=== PATIENT | female | born 1995 | race Two or more races ===

== ENCOUNTER 2016-07-24 14:02 | Emergency (ER) | payer OTHER ==
[2016-07-24] MEDS ORDERED: IOPAMIDOL 300 (61%) 150 ML VIAL IV ONE (14:03)
[2016-07-24] MEDS ORDERED: ONDANSETRON 4 MG/2ML 2 ML VIAL ONE (15:04)
[2016-07-24] MEDS ORDERED: HYDROMORPHONE HCL 1 MG/ML SYRINGE ONE (15:04)
[2016-07-24 15:20] LABS: ABSOLUTE NEUTROPHIL COUNT 10.8 K/mm3 (1.8-7.7); BASO % 0.2 % (0.2-1.0); EOS # 0.1 (0.0-0.5); EOS % 0.5 % (0.9-2.9); HEMATOCRIT 40.8 % (37.0-47.0); HEMOGLOBIN 13.7 gm/l (12.0-16.0); IMM NEUT% 0.3 % (0-1); LYMPH # 0.5 (1.0-4.8); LYMPH % 4.4 % (15-45); MEAN CELL VOLUME 92.7 fl (81.0-99.0); MEAN CORPUSCULAR HEMOGLOBIN 31.1 pg (27.0-31.0); MEAN CORPUSCULAR HGB CONC 33.6 g/dl (33.0-37.0); MEAN PLATELET VOLUME 10.2 fl (7.4-10.4); MONO # 0.5 (0.0-0.8); MONO % 4.3 % (4-12); NEUT % 90.3 % (43-75); PLATELET COUNT 347 K/mm3 (130-400); RED CELL DISTRIBUTION WIDTH 12.5 % (11.5-14.5)
[2016-07-24 15:27] LABS: ALB/GLOB RATIO 1.2 (>1.0); ALBUMIN 4.1 gm/dL (3.5-5.7); CALCIUM 9.3 mg/dL (8.6-10.3)
--- NOTE | 2016-07-24 16:08 | CT ---
Exam Type: ABD/PELVIS W/ CON Date and Time: 07/24/2016 2:39 PM Clinical information: Right lower quadrant pain with hematemesis. Comparison: None Technique: Contiguous axial 4 mm images were obtained from the lung bases through the pelvis after the uneventful IV administration of 125 cc of [id number]. Sagittal and coronal reformations with high resolution lung algorithm images were also obtained at this time. CT DI: 18.1 DLP 932.2 FINDINGS: Lung base :No abnormality is identified at the lung bases. Visualized heart:There is no pericardial effusion. LIVER: Minimal fatty infiltration to the liver without focal lesion. BILE DUCTS: normal caliber. GALLBLADDER: No calcified gallstones. Normal caliber wall. PANCREAS: within normal limits. SPLEEN: within normal limits. ADRENALS: within normal limits. KIDNEYS: within normal limits. Stomach and small BOWEL: Small to moderate hiatal hernia. Otherwise normal. Large bowel: Air and stool are noted within the large bowel. Appendix is not visualized though secondary signs of appendicitis are not present. LYMPH NODES: No enlarged mesenteric lymph nodes. PERITONEUM: no ascites or free air, no fluid collection. VESSELS: within normal limits RETROPERITONEUM: within normal limits. ABDOMINAL WALL: within normal limits. Bladder: Normal. Uterus and adnexa: Multiple right-sided cyst/follicles are present. Otherwise normal. BONES: Unilateral right-sided pars defect is present with contralateral sclerosis at the lumbosacral junction. This can be a source of pain. Otherwise normal. IMPRESSION: Multiple right-sided cysts/follicles without other acute inflammatory process. Nonvisualization of the appendix though secondary signs of appendicitis are not seen. 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 Other findings as above. Findings were called to Dr. Rees at approximately 1604 hours on 07/24/2016.
[2016-07-24 17:04] LABS: BAND 3 % (0-10); BASOPHIL 0 % (0-1); EOSINOPHIL 1 % (1-3); LYMPHOCYTE 7 % (15-45); MONOCYTE 4 % (4-12); NEUTROPHILS 85 % (43-75); PLATELET ESTIMATE NORMAL (NORMAL); TOTAL CELLS COUNTED 100
[2016-07-25 15:24] LABS: CHLAMYDIA BD Negative (Negative); N.GONORRHOEAE BD Negative (Negative); SOURCE Urine (())
== END 2016-07-24 16:20 | disposition home or self-care (01) ==
LOC: ED 14:02
DX: R11.2 Nausea with vomiting, unspecified (principal); R10.31 Right lower quadrant pain; R53.1 Weakness
CPT/HCPCS: 83690; 87491; 87591; 84703; 85025; 80053; 74177; 96375; 99283; 96374; 99284; J1170; J2405; Q9967